=== PATIENT | male | born 1990 | race Hispanic/Latino ===

== ENCOUNTER 2016-09-24 11:10 | Emergency (ER) | payer OTHER ==
[~2016-09-24] VITALS: Ht 167.6 cm; Wt 89.9 kg
[~2016-09-24 11:10] MED LIST: NOHOMEMEDS
[2016-09-24] MEDS ORDERED: KENALOG,ARISTOC80 GM TP (12:30)
[2016-09-24] MEDS ORDERED: PREDNISONE10 MG PO (12:30)
[2016-09-24 12:38] VITALS: BP 136/79
== END 2016-09-24 12:39 | disposition home or self-care (01) ==
LOC: EME 11:10
DX: L30.9 Dermatitis, unspecified (principal)
CPT/HCPCS: 99281; 99283